=== PATIENT | female | born 1965 | race Caucasian/White ===

== ENCOUNTER → 2016-12-03 | Outpatient (CLI) | payer BC ==
--- NOTE | 2016-12-04 16:32 | MG ---
HISTORY: SCREENING Comparison: None FINDINGS: Bilateral CC and MLO projections of the right and left breast were obtained utilizing both full-fiel d and push back techniques. Heterogeneously dense fibroglandular tissue is seen to be present witho ut significant interval change. No suspicious architectural distortion, mass or clustered microcalc ifications can be observed to suggest malignancy. No skin thickening or nipple retraction is apprec iated. No pathological lymphadenopathy can be identified. Benign-appearing calcifications are note d within the right and left breast. Bilateral subpectoral saline implants appear grossly intact. IMPRESSION: NO RADIOGRAPHIC EVIDENCE OF MALIGNANCY. ACR CATEGORY 2 - benign findings. FOLLOW-UP EXAM 1 YEAR. Diagnostic CAD was utilized and reviewed. * 0 (ZERO) - ASSESSMENT INCOMPLETE; ADDITIONAL IMAGING IS NEEDED. * 1/1 (ONE) - NEGATIVE. * 2/II (TWO) - BENIGN FINDINGS. * 3/III (THREE) - PROBABLY BENIGN FINDING; SHORT INTERVAL FOLLOW-UP SUGGESTED. * 4/IV (FOUR) - SUSPICIOUS ABNORMALITY; BIOPSY SHOULD BE CONSIDERED. * 5/V (FIVE) - HIGHLY SUSPICIOUS OF MALIGNANCY; BIOPSY SHOULD BE PERFORMED. A NEGATIVE X-RAY REPORT SHOULD NOT DELAY BIOPSY IF A DOMINANT OR CLINICALLY SUSPICIOUS MASS IS PRESENT; 4 TO 8 PERCENT OF CANCERS ARE NOT IDENTIFIED BY X-RAY. A NEG ATIVE REPORT MAY REINFORCE THE CLINICAL IMPRESSION. ADENOSIS AND DENSE BREASTS MAY OBSCURE AN UNDER LYING NEOPLASM. Reported By:
== END ==
LOC: RAD 09:53
PROVIDERS: ATTEND Physician Assistant Medical
DX: Z12.31 Encounter for screening mammogram for malignant neoplasm of breast (principal)
CPT/HCPCS: 77067

== ENCOUNTER 2023-02-19 20:30 | Inpatient (IN) ==
--- NOTE | 2023-02-19 20:50 | EKG ---
Test Reason : CHEST PAIN Blood Pressure : */* mmHG Vent. Rate : 74 BPM Atrial Rate : 74 BPM P-R Int : 128 ms QRS Dur : 88 ms QT Int : 402 ms P-R-T Axes : 56 -16 59 degrees QTc Int : 446 ms Normal sinus rhythm Possible Left atrial enlargement Borderline ECG No previous ECGs available Confirmed by Christiano Choi ([id number]) on 02/20/2023 7:48:49 AM Referred By: Confirmed By: Christiano Choi
[2023-02-19 21:05] LABS: BASOPHILS # (AUTO) 0.1 X10^3/uL (0.0-0.1); BASOPHILS % (AUTO) 0.5 % (0.2-1.0); EOSINOPHILS # (AUTO) 0.1 x10^3/uL (0.0-0.2); EOSINOPHILS % (AUTO) 0.4 % (0.9-2.9); HEMATOCRIT 35.5 % (36.0-47.0); HEMOGLOBIN 12.2 g/dL (12.0-16.0); LYMPHOCYTES # (AUTO) 2.3 X10^3/uL (1.3-2.9); LYMPHOCYTES % (AUTO) 15.1 % (21.0-51.0); MEAN CORPUSCULAR HEMOGLOBIN 27.4 pg (27.0-34.0); MEAN CORPUSCULAR HGB CONC 34.5 g/dL (33.0-35.0); MEAN CORPUSCULAR VOLUME 79.5 fL (80.0-100.0); MEAN PLATELET VOLUME 8.4 fL (7.4-11.0); MONOCYTES # (AUTO) 1.1 x10^3/uL (0.3-0.8); MONOCYTES % (AUTO) 7.3 % (0.0-13.0); NEUTROPHILS # (AUTO) 11.7 x10^3/uL (2.2-4.8); NEUTROPHILS % (AUTO) 76.7 % (42.0-75.0); PLATELET COUNT 458 X10^3/uL (150.0-450.0); RED BLOOD COUNT 4.47 X10^6/uL (3.5-5.4); RED CELL DISTRIBUTION WIDTH 15.3 % (11.6-16.5); WHITE BLOOD COUNT 15.2 X10^3/uL (3.6-10.0)
[2023-02-19 21:16] LABS: ALANINE AMINOTRANSFERASE 15 Units/L (12-78); ALBUMIN 3.1 g/dL (3.4-5.0); ALKALINE PHOSPHATASE 108 Units/L (46-116); ASPARTATE AMINO TRANSFERASE 12 Units/L (15-37); BLOOD UREA NITROGEN 4 mg/dL (7-18); CARBON DIOXIDE 23.5 mmol/L (21-32); CHLORIDE 84 mmol/L (98-107); COR CA(FOR HYPOALB) 8.7 mg/dL (8.5-10.1); CREATINE KINASE 21 Units/L (26-192); CREATININE 0.75 mg/dL (0.55-1.02); GLUCOSE 94 mg/dL (65-99); POTASSIUM 3.1 mmol/L (3.5-5.1); TOTAL PROTEIN 6.2 g/dL (6.4-8.2); eGFR NON BLACK RACES > 60 (>60)
[2023-02-19 21:18] LABS: SODIUM 121 mmol/L (136-145)
[2023-02-19] MEDS ORDERED: NS 1,000 ML IV 1,000 ML ONE (21:19)
--- NOTE | 2023-02-19 21:21 | RAD ---
HISTORYC/O LEFT CHEST PAIN THAT RADIATES DOWN LEFT ARM. STARTED APPROX 1915 THIS DATE. EMS REPORTS PT HAS BEEN OUT OF HER BP AND ANXIETY MEDS AND HASNT BEEN TAKING THEM.STUDYCHEST, 1 VIEWCOMPARISONNoneFINDINGSModerate thoracic scoliotic curvature. Heart size is enlarged without failure. Interstitial lung changes suggesting COPD. No confluent airspace opacity or pneumothorax.IMPRESSIONChronic appearing interstitial lung changesElectronically signed by: Shahid Harris (Feb 19, 2023 21:21:13)
[2023-02-19] MEDS ORDERED: NS 1,000 ML IV 1,000 ML IV ONE (21:36)
[2023-02-19] MEDS ORDERED: K-DUR TAB 20 MEQ PO ONE ×2 (21:39)
--- NOTE | 2023-02-19 21:46 | DR.CP ---
HPI Time Seen Time Seen by Provider: 02/19/23 21:44 PCP Primary Care Physician: [facility] Complaint Chief Complaint Doctor Comments: CHEST PAIN RADIATING TO LEFT ARM STARTING 2 DAYS AGO. Chief Complaint:: PT C/O LEFT CHEST PAIN THAT RADIATES DOWN LEFT ARM. STARTED APPROX 1914 THIS DATE. Self Treatment fo Chief Complaint: PT REPORTS SHE IS TRYING TO GET OFF HER MEDS AND SENT THEM HOME TO HER BROTHER. PT STATES SHE HASNT TAKEN HER HOME MEDS IN 1 WEEK. COVID-19 Coronavirus risk:travel/contact w/high risk person: No Has patient experienced Coronavirus symptoms: No Source History Provided: Patient Mode of Arrival Mode of Arrival: EMS Timing Onset of Chief Complaint: 02/19/23 PMH PMH Past Medical History: Yes Past Medical History: Anxiety and Hypertension Past Surgical History: Yes Surgical History: Hysterectomy Family History History of Family Medical Conditions: No Social History Does patient currently use any type of tobacco product: Yes Have you used tobacco products in the last 12 months: Yes Type of Tobacco Use: VAPE Does any household member use tobacco: No Alcohol Use: None Do you use any recreational Drugs:: No Lives With: Alone Lives Where: Home Travel Risk Coronavirus risk:travel/contact w/high risk person: No Has patient experienced Coronavirus symptoms: No Infectious screening In the last 2 months have you had wt loss of >10#?: NO Have you had fever, night sweats or hemotysis?: No Have you traveled outside the country in the last 6 months?: No Isolation: Standard ROS Review of Systems Constitutional: Other (CHEST PAIN RADIATING TO LEFT ARM FOR 2 HOURS) Eyes: No Symptoms Reported ENTM: No Symptoms Reported Respiratoy: No Symptoms Reported Cardiovascular: Chest Pain Gastrointestinal/Abdominal: No Symptoms Reported Genitourinary: No Symptoms Reported Neurological: No Symptoms Reported Musculoskeletal: No Symptoms Reported Integumentary: No Symptoms Reported Hematologic/Lymphatic: No Symptoms Reported Endocrine: No Symptoms Reported Psychiatric: No Symptoms Reported PE Vitals Vitals: Temperature 97.7 F Pulse Rate 75 Respiratory Rate 18 Blood Pressure 158/68 O2 Sat by Pulse Oximetry 100 General Limitations: No Limitations General Appearance: In Distress (IN MILD DISTRESS) Head Head Exam: Normal Inspection and Atraumatic Eyes Eye exam: Normal Appearance, PERRL and EOMI ENT ENT Exam: Normal Exam, Normal Oropharynx and Normal External Ear Exam Chest Chest Inspection: Normal Inspection and Symmetric Chest Wall Rise Respiratory Respiratory Exam: Normal Lung Sounds Bilat Respiratory Exam: Bilateral: Clear to Auscultation Cardiovascular Cardiovascular Exam: Regular Rate and Normal Rhythm Pulse: Normal Abdominal Exam Abdominal Exam: Normal Inspection Extremities Extremities Exam: Normal Inspection and Full ROM Back Back Exam: Normal Inspection and Full ROM Neurologic Neurological Exam: Alert, Oriented X3 and CN II-XII Intact Psychiatric Psychiatric Exam: Anxious Skin Skin Exam: Warm, Dry and Intact MDM Differential Diagnosis Differential Diagnosis: Angina and Chest Wall Pain COURSE Treatment Treatment: PATIENT REMANED STABLE DURING ER EVALUATION. CARDIAC MENDOZA WAS NEGATIVE. PATIENT HAD SODIUM OF 121 AND POTASSIUM OF 3.1. WAS GIVEN A LITER BOLUS OS NACL AND A ND WAS GIVEN POTASSIUM 20MEQ IN ER ORALLY. THE PATIENT HAD NO CHEST PAIN IN THE ER. CHEST XRAY SHOWED MODERATE THORACIC SCOLIOSIS,ITERSTITIAL LUNG CHANGES SUGGESTING COPD. CONTACT WAS MADE WITH DR VILLASENOR AT 0120 AND HE STATED THAT HE WOULD ACCEPT THE PATIENT TO ADMISSION FOR HYPONATREMIA AND HYPOKALEMIA. SUGGESTED TO START THE PATIENT ON SALILE AT 125 CC/HR AND ADD POTASSIUM TO THE BAG. HE WILL FURTHER EVALUATE THE PATIENT IN THE AM AND DETERMINE SUBSEQUENT T REATMENT. ROR Labs Reviewed Laboratory Results Reviewed?: Yes Result Diagrams: 02/19/23 20:57 02/19/23 20:57 Laboratory: WBC 15.2 X10^3/uL (3.6-10.0) H 02/19/23 20:57 RBC 4.47 X10^6/uL (3.5-5.4) 02/19/23 20:57 Hgb 12.2 g/dL (12.0-16.0) 02/19/23 20:57 Hct 35.5 % (36.0-47.0) L 02/19/23 20:57 MCV 79.5 fL (80.0-100.0) L 02/19/23 20:57 MCH 27.4 pg (27.0-34.0) 02/19/23 20:57 MCHC 34.5 g/dL (33.0-35.0) 02/19/23 20:57 RDW 15.3 % (11.6-16.5) 02/19/23 20:57 Plt Count 458 X10^3/uL (150.0-450.0) H 02/19/23 20:57 MPV 8.4 fL (7.4-11.0) 02/19/23 20:57 Neut % (Auto) 76.7 % (42.0-75.0) H 02/19/23 20:57 Lymph % (Auto) 15.1 % (21.0-51.0) L 02/19/23 20:57 Morrill % (Auto) 7.3 % (0.0-13.0) 02/19/23 20:57 Eos % (Auto) 0.4 % (0.9-2.9) L 02/19/23 20:57 Baso % (Auto) 0.5 % (0.2-1.0) 02/19/23 20:57 Neut # (Auto) 11.7 x10^3/uL (2.2-4.8) H 02/19/23 20:57 Lymph # (Auto) 2.3 X10^3/uL (1.3-2.9) 02/19/23 20:57 Morrill # (Auto) 1.1 x10^3/uL (0.3-0.8) H 02/19/23 20:57 Eos # (Auto) 0.1 x10^3/uL (0.0-0.2) 02/19/23 20:57 Baso # (Auto) 0.1 X10^3/uL (0.0-0.1) 02/19/23 20:57 Absolute Nucleated RBC 0.1 /100WBC 02/19/23 20:57 Sodium 121 mmol/L (136-145) L* 02/19/23 20:57 Corrected Sodium TNP 02/19/23 20:57 Potassium 3.1 mmol/L (3.5-5.1) L 02/19/23 20:57 Chloride 84 mmol/L (98-107) L 02/19/23 20:57 Carbon Dioxide 23.5 mmol/L (21-32) 02/19/23 20:57 BUN 4 mg/dL (7-18) L 02/19/23 20:57 Creatinine 0.75 mg/dL (0.55-1.02) 02/19/23 20:57 Est GFR (MDRD) Af Amer > 60 (>60) 02/19/23 20:57 Est GFR (MDRD) Non-Af > 60 (>60) 02/19/23 20:57 Glucose 94 mg/dL (65-99) 02/19/23 20:57 Calcium 8.0 mg/dL (8.5-10.1) L 02/19/23 20:57 Corrected Calcium 8.7 mg/dL (8.5-10.1) 02/19/23 20:57 Total Bilirubin 0.50 mg/dL (0.2-1.0) 02/19/23 20:57 AST 12 Units/L (15-37) L 02/19/23 20:57 ALT 15 Units/L (12-78) 02/19/23 20:57 Alkaline Phosphatase 108 Units/L (46-116) 02/19/23 20:57 Creatine Kinase 21 Units/L (26-192) L 02/19/23 20:57 Troponin I High Sens 4.9 ng/L (4.0-60.0) 02/19/23 20:57 Total Protein 6.2 g/dL (6.4-8.2) L 02/19/23 20:57 Albumin 3.1 g/dL (3.4-5.0) L 02/19/23 20:57 Globulin 3.1 g/dL (2.5-4.5) 02/19/23 20:57 Albumin/Globulin Ratio 1.0 Ratio (1.1-2.1) L 02/19/23 20:57 Opioid Opioid Risk Tool Age (Luis Enrique box if 16-45): No History of Preadolescent Sexual Abuse: No Total: 0 Total Score Risk Category: Low Risk Copyright: Ori CRUZ predicting aberrant behaviors Discharge Plan Diagnosis Discharge Problem: Hypokalemia, Hyponatremia Discharge Plan Patient Disposition: ADMITTED INPATIENT Condition: Stable Orders to Discharge Patient Discharge Orders: Transfer (Routine); Ordered 02/20/23 Ordered By: Deacon Alicea
[2023-02-20] MEDS ORDERED: NS + KCL 20 MEQ/L 1,000 ML IV ONE (01:51)
[2023-02-20] MEDS: NS + KCL 20 MEQ/L 1,000 ML IV SCH ×4 (01:57→18:51)
[2023-02-20 03:02] VITALS: BMI 29.0
[2023-02-20 05:15] LABS: BASOPHILS # (AUTO) 0.1 X10^3/uL (0.0-0.1); BASOPHILS % (AUTO) 0.6 % (0.2-1.0); EOSINOPHILS # (AUTO) 0.1 x10^3/uL (0.0-0.2); EOSINOPHILS % (AUTO) 0.8 % (0.9-2.9); HEMOGLOBIN 12.2 g/dL (12.0-16.0); LYMPHOCYTES # (AUTO) 2.1 X10^3/uL (1.3-2.9); LYMPHOCYTES % (AUTO) 18.4 % (21.0-51.0); MEAN CORPUSCULAR HEMOGLOBIN 27.3 pg (27.0-34.0); MEAN CORPUSCULAR HGB CONC 34.8 g/dL (33.0-35.0); MEAN CORPUSCULAR VOLUME 78.5 fL (80.0-100.0); MEAN PLATELET VOLUME 8.5 fL (7.4-11.0); MONOCYTES # (AUTO) 0.9 x10^3/uL (0.3-0.8); MONOCYTES % (AUTO) 7.8 % (0.0-13.0); NEUTROPHILS # (AUTO) 8.4 x10^3/uL (2.2-4.8); NEUTROPHILS % (AUTO) 72.4 % (42.0-75.0); PLATELET COUNT 405 X10^3/uL (150.0-450.0); RED BLOOD COUNT 4.46 X10^6/uL (3.5-5.4); RED CELL DISTRIBUTION WIDTH 15.4 % (11.6-16.5); WHITE BLOOD COUNT 11.6 X10^3/uL (3.6-10.0)
[2023-02-20 05:31] LABS: ALANINE AMINOTRANSFERASE 14 Units/L (12-78); ALBUMIN 2.8 g/dL (3.4-5.0); ALKALINE PHOSPHATASE 100 Units/L (46-116); ASPARTATE AMINO TRANSFERASE 12 Units/L (15-37); BLOOD UREA NITROGEN 3 mg/dL (7-18); CALCIUM 7.7 mg/dL (8.5-10.1); CARBON DIOXIDE 24.2 mmol/L (21-32); CHLORIDE 90 mmol/L (98-107); COR CA(FOR HYPOALB) 8.7 mg/dL (8.5-10.1); CREATININE 0.54 mg/dL (0.55-1.02); GLUCOSE 84 mg/dL (65-99); POTASSIUM 3.5 mmol/L (3.5-5.1); TOTAL PROTEIN 5.7 g/dL (6.4-8.2); eGFR NON BLACK RACES > 60 (>60)
[2023-02-20 05:35] LABS: SODIUM 126 mmol/L (136-145)
[2023-02-20] MEDS: CYMBALTA PO SCH ×2 (10:45→20:36)
[2023-02-20] MEDS: MAGNESIUM SULFATE 1 GRAM/100 mL PREMIX 1 G/100 ML BAG IV PRN ×2 (10:47→12:20)
[2023-02-20] MEDS ORDERED: SODIUM CHL HYPERTONIC ** 3% ** 500 ML IV PRN (13:39)
[2023-02-20 17:39] LABS: BLOOD UREA NITROGEN 1 mg/dL (7-18); CALCIUM 7.5 mg/dL (8.5-10.1); CARBON DIOXIDE 24.5 mmol/L (21-32); CHLORIDE 103 mmol/L (98-107); CREATININE 0.53 mg/dL (0.55-1.02); GLUCOSE 88 mg/dL (65-99); POTASSIUM 4.1 mmol/L (3.5-5.1); SODIUM 138 mmol/L (136-145); eGFR NON BLACK RACES > 60 (>60)
[2023-02-20] MEDS ORDERED: ZOFRAN INJ 4 MG VIAL IVP PRN (18:08)
[2023-02-20] MEDS: TOPROL XL PO SCH (20:36)
[2023-02-21] MEDS: NS + KCL 20 MEQ/L 1,000 ML IV SCH (01:18)
[2023-02-21 06:27] LABS: BASOPHILS # (AUTO) 0.1 X10^3/uL (0.0-0.1); BASOPHILS % (AUTO) 0.8 % (0.2-1.0); EOSINOPHILS # (AUTO) 0.1 x10^3/uL (0.0-0.2); EOSINOPHILS % (AUTO) 0.7 % (0.9-2.9); HEMATOCRIT 35.4 % (36.0-47.0); LYMPHOCYTES # (AUTO) 2.1 X10^3/uL (1.3-2.9); LYMPHOCYTES % (AUTO) 20.7 % (21.0-51.0); MEAN CORPUSCULAR HEMOGLOBIN 27.5 pg (27.0-34.0); MEAN CORPUSCULAR HGB CONC 33.9 g/dL (33.0-35.0); MEAN PLATELET VOLUME 8.8 fL (7.4-11.0); MONOCYTES # (AUTO) 1.1 x10^3/uL (0.3-0.8); MONOCYTES % (AUTO) 10.8 % (0.0-13.0); NEUTROPHILS # (AUTO) 6.7 x10^3/uL (2.2-4.8); PLATELET COUNT 365 X10^3/uL (150.0-450.0); RED BLOOD COUNT 4.37 X10^6/uL (3.5-5.4); RED CELL DISTRIBUTION WIDTH 15.6 % (11.6-16.5); WHITE BLOOD COUNT 9.9 X10^3/uL (3.6-10.0)
[2023-02-21 06:41] LABS: ALANINE AMINOTRANSFERASE 15 Units/L (12-78); ALBUMIN 2.6 g/dL (3.4-5.0); ALKALINE PHOSPHATASE 89 Units/L (46-116); ASPARTATE AMINO TRANSFERASE 11 Units/L (15-37); BLOOD UREA NITROGEN 2 mg/dL (7-18); CALCIUM 7.8 mg/dL (8.5-10.1); CARBON DIOXIDE 25.9 mmol/L (21-32); CHLORIDE 105 mmol/L (98-107); COR CA(FOR HYPOALB) 8.9 mg/dL (8.5-10.1); COR NA(FOR HYPERGLY) 138 mmol/L (136-145); CREATININE 0.68 mg/dL (0.55-1.02); GLUCOSE 112 mg/dL (65-99); MAGNESIUM 2.1 mg/dL (2.0-2.9); POTASSIUM 4.4 mmol/L (3.5-5.1); SODIUM 138 mmol/L (136-145); TOTAL PROTEIN 5.6 g/dL (6.4-8.2); eGFR NON BLACK RACES > 60 (>60)
[2023-02-21] MEDS: TOPROL XL PO SCH (08:23)
[2023-02-21] MEDS: CYMBALTA PO SCH (08:23)
[2023-02-21 08:45] VITALS: O2SAT 99
[2023-02-21] MEDS ORDERED: PREDNISONE TAB 10 MG PO SCH (09:00)
[2023-02-21 13:13] VITALS: BP 114/73; PULSE 66; TEMP 98.6
== END 2023-02-21 14:05 | disposition home or self-care (01) | DRG 313 ==
LOC: ER 20:30 → MED/SURG 02-20 02:17
PROVIDERS: ADMIT Obstetrics & Gynecology Obstetrics; ATTEND Obstetrics & Gynecology Obstetrics
DX: E87.6 Hypokalemia; M79.602 Pain in left arm; E87.1 Hypo-osmolality and hyponatremia; R07.89 Other chest pain; R53.1 Weakness; E27.49 Other adrenocortical insufficiency

== ENCOUNTER 2024-08-07 10:00 | Inpatient (IN) ==
--- NOTE | 2024-08-07 10:51 | DR.GENAD ---
HPI Time Seen Time Seen by Provider: 08/07/24 10:51 PCP Primary Care Physician: jaya snider Complaint/Symptoms Chief Complaint:: Patient c/o of redness and pain to the left leg/ankle that has been going on a month that gets worse at night states it just got really bad lastnight. patient denies taking any antibiotics for it, denies any injuries. Self Treatment fo Chief Complaint: tylenol 0600 COVID-19 Coronavirus risk:travel/contact w/high risk person: No Has patient experienced Coronavirus symptoms: No Source History Provided: Patient Mode of Arrival Mode of Arrival: Ambulatory Timing Onset of Chief Complaint: 07/07/24 PMH PMH Past Medical History: Yes Past Medical History: Anxiety, Arthritis and Hypertension Past Surgical History: Yes Surgical History: Hysterectomy and Ortho Surgery Past Surgical History Comment: cataracts Family History History of Family Medical Conditions: Yes Family Medical History: Heart Failure and Hypertension Social History Does patient currently use any type of tobacco product: No Have you used tobacco products in the last 12 months: No Type of Tobacco Use: None Does any household member use tobacco: No Alcohol Use: None Do you use any recreational Drugs:: No Lives With: Alone Lives Where: Home Travel Risk Coronavirus risk:travel/contact w/high risk person: No Has patient experienced Coronavirus symptoms: No Infectious screening In the last 2 months have you had wt loss of >10#?: NO Have you had fever, night sweats or hemotysis?: No Have you traveled outside the country in the last 6 months?: No Isolation: Standard PE Vital Signs Vitals: Vital Signs Temperature 97.8 F Pulse Rate 80 Respiratory Rate 18 Blood Pressure 144/74 O2 Sat by Pulse Oximetry 100 ROR Labs Reviewed 08/07/24 11:26 08/07/24 11:26 Laboratory: WBC 21.9 X10^3/uL (3.6-10.0) H 08/07/24 11: RBC 4.99 X10^6/uL (3.5-5.4) 08/07/24 11: Hgb 14.2 g/dL (12.0-16.0) 08/07/24 11: Hct 39.7 % (36.0-47.0) 08/07/24 11: MCV 79.6 fL (80.0-100.0) L 08/07/24 11:26 MCH 28.5 pg (27.0-34.0) 08/07/24 11:26 MCHC 35.7 g/dL (33.0-35.0) H 08/07/24 11:26 RDW 15.4 % (11.6-16.5) 08/07/24 11:26 Plt Count 308 X10^3/uL (150.0-450.0) 08/07/24 11:26 Plt Count Comment Adequate (ADEQUATE) 08/07/24 11:26 MPV 8.4 fL (7.4-11.0) 08/07/24 11:26 Neut % (Auto) 91.7 % (42.0-75.0) H 08/07/24 11:26 Lymph % (Auto) 3.5 % (21.0-51.0) L 08/07/24 11:26 Crawford % (Auto) 4.5 % (0.0-13.0) 08/07/24 11:26 Eos % (Auto) 0.1 % (0.9-2.9) L 08/07/24 11:26 Baso % (Auto) 0.2 % (0.2-1.0) 08/07/24 11:26 Neut # (Auto) 20.1 x10^3/uL (2.2-4.8) H 08/07/24 11:26 Lymph # (Auto) 0.8 X10^3/uL (1.3-2.9) L 08/07/24 11:26 Crawford # (Auto) 1.0 x10^3/uL (0.3-0.8) H 08/07/24 11:26 Eos # (Auto) 0.0 x10^3/uL (0.0-0.2) 08/07/24 11:26 Baso # (Auto) 0.0 X10^3/uL (0.0-0.1) 08/07/24 11:26 Absolute Nucleated RBC 0.0 /100WBC 08/07/24 11:26 Total Counted 100 08/07/24 11:26 Neutrophils % (Manual) 82 % (39-76) H 08/07/24 11:26 Band Neutrophils % 5 % (0-10) 08/07/24 11:26 Lymphocytes % (Manual) 9 % (13-43) L 08/07/24 11:26 Monocytes % (Manual) 4 % (4-9) 08/07/24 11:26 Plt Morphology Comment Normal (NORMAL) 08/07/24 11:26 RBC Morphology Normal (NORMAL) 08/07/24 11:26 Sodium 114 mmol/L (136-145) L* 08/07/24 11:26 Corrected Sodium 114 mmol/L (136-145) L 08/07/24 11:26 Potassium 4.2 mmol/L (3.5-5.1) 08/07/24 11:26 Chloride 78 mmol/L (98-107) L* 08/07/24 11:26 Carbon Dioxide 26.1 mmol/L (21-32) 08/07/24 11:26 BUN 3 mg/dL (7-18) L 08/07/24 11:26 Creatinine 0.95 mg/dL (0.55-1.02) 08/07/24 11:26 Est GFR (MDRD) Af Amer > 60 (>60) 08/07/24 11:26 Est GFR (MDRD) Non-Af > 60 (>60) 08/07/24 11:26 Glucose 113 mg/dL (65-99) H 08/07/24 11:26 Lactic Acid 1.2 mmol/L (0.4-2.0) 08/07/24 12:07 Calcium 8.9 mg/dL (8.5-10.1) 08/07/24 11:26 Corrected Calcium TNP 08/07/24 11:26 Total Bilirubin 0.90 mg/dL (0.2-1.0) 08/07/24 11:26 AST 15 Units/L (15-37) 08/07/24 11:26 ALT 20 Units/L (12-78) 08/07/24 11:26 Alkaline Phosphatase 106 Units/L (46-116) 08/07/24 11:26 Total Protein 7.1 g/dL (6.4-8.2) 08/07/24 11:26 Albumin 3.4 g/dL (3.4-5.0) 08/07/24 11:26 Globulin 3.7 g/dL (2.5-4.5) 08/07/24 11:26 Albumin/Globulin Ratio 0.9 Ratio (1.1-2.1) L 08/07/24 11:26 Specimen Type Clean catch urine 08/07/24 11:14 Urine Color Yellow (YELLOW) 08/07/24 11:14 Urine Appearance Slightly hazy (CLEAR) 08/07/24 11:14 Urine pH 6.0 (5.0 - 8.0) 08/07/24 11:14 Ur Specific [place] 1.010 (1.000-1.030) 08/07/24 11:14 Urine Protein 2+ (NEGATIVE) 08/07/24 11:14 Urine Glucose (UA) Negative (NEGATIVE) 08/07/24 11:14 Urine Ketones 3+ (NEGATIVE) 08/07/24 11:14 Urine Blood 3+ (NEGATIVE) 08/07/24 11:14 Urine Nitrite Negative (NEGATIVE) 08/07/24 11:14 Urine Bilirubin Negative (NEGATIVE) 08/07/24 11:14 Urine Urobilinogen Normal (NORMAL) 08/07/24 11:14 Ur Leukocyte Esterase Negative (NEGATIVE) 08/07/24 11:14 Urine RBC 3-5 /HPF (0-3) A 08/07/24 11:14 Urine WBC 0-2 /HPF (0-5) 08/07/24 11:14 Ur Squamous Epith Cells Many /HPF (NEGATIVE) 08/07/24 11:14 Amorphous Sediment 1+ /HPF (NEGATIVE) 08/07/24 11:14 Urine Bacteria Negative /HPF (NEGATIVE) 08/07/24 11:14 Urine Mucus Few /HPF (NEGATIVE) 08/07/24 11:14 Ur Culture Indicated? No/not indicated 08/07/24 11:14 Opioid Opioid Risk Tool Age (Luis Enrique box if 16-45): No History of Preadolescent Sexual Abuse: No Total: 0 Total Score Risk Category: Low Risk Copyright: Ori CRUZ predicting aberrant behaviors Discharge Plan Diagnosis Discharge Problem: Cellulitis of right leg, Acute hyponatremia, Lower back pain, Leukocytosis Discharge Plan Patient Disposition: 09 ADMITTED INPATIENT Condition: Stable Orders to Discharge Patient Discharge Orders: Transfer (Routine); Ordered 08/07/24 Ordered By: ЕЛЕНА MELARA
[2024-08-07] MEDS: CYMBALTA PO ONE (11:18)
[2024-08-07 11:26] LABS: BILIRUBIN,URINE NEGATIVE (NEGATIVE); BLOOD/HEMOGLOBIN,URINE 3+ (NEGATIVE); GLUCOSE, URINE NEGATIVE (NEGATIVE); KETONES,URINE 3+ (NEGATIVE); LEUKOCYTE ESTERASE ,URINE NEGATIVE (NEGATIVE); NITRITES,URINE NEGATIVE (NEGATIVE); PROTEIN,URINE 2+ (NEGATIVE); UROBILINOGEN,URINE NORMAL (NORMAL)
[2024-08-07 11:30] LABS: APPEARANCE,URINE SLIGHTLY HAZY (CLEAR); COLOR,URINE YELLOW (YELLOW)
[2024-08-07 11:33] LABS: BACTERIA,URINE NEGATIVE /HPF (NEGATIVE); SQUAMOUS EPITHELIAL CELL,UR MANY /HPF (NEGATIVE)
[2024-08-07 11:38] LABS: HEMATOCRIT 39.7 % (36.0-47.0); HEMOGLOBIN 14.2 g/dL (12.0-16.0); MEAN CORPUSCULAR HEMOGLOBIN 28.5 pg (27.0-34.0); MEAN CORPUSCULAR VOLUME 79.6 fL (80.0-100.0); RED BLOOD COUNT 4.99 X10^6/uL (3.5-5.4)
[2024-08-07 11:42] LABS: BASOPHILS % (AUTO) 0.2 % (0.2-1.0); EOSINOPHILS % (AUTO) 0.1 % (0.9-2.9); LYMPHOCYTES # (AUTO) 0.8 X10^3/uL (1.3-2.9); LYMPHOCYTES % (AUTO) 3.5 % (21.0-51.0); MEAN CORPUSCULAR HGB CONC 35.7 g/dL (33.0-35.0); MEAN PLATELET VOLUME 8.4 fL (7.4-11.0); MONOCYTES % (AUTO) 4.5 % (0.0-13.0); NEUTROPHILS # (AUTO) 20.1 x10^3/uL (2.2-4.8); NEUTROPHILS % (AUTO) 91.7 % (42.0-75.0); PLATELET COUNT 308 X10^3/uL (150.0-450.0); RED CELL DISTRIBUTION WIDTH 15.4 % (11.6-16.5); WHITE BLOOD COUNT 21.9 X10^3/uL (3.6-10.0)
[2024-08-07 11:46] LABS: ALANINE AMINOTRANSFERASE 20 Units/L (12-78); ALBUMIN 3.4 g/dL (3.4-5.0); ALKALINE PHOSPHATASE 106 Units/L (46-116); ASPARTATE AMINO TRANSFERASE 15 Units/L (15-37); BLOOD UREA NITROGEN 3 mg/dL (7-18); CALCIUM 8.9 mg/dL (8.5-10.1); CARBON DIOXIDE 26.1 mmol/L (21-32); COR NA(FOR HYPERGLY) 114 mmol/L (136-145); CREATININE 0.95 mg/dL (0.55-1.02); GLUCOSE 113 mg/dL (65-99); POTASSIUM 4.2 mmol/L (3.5-5.1); TOTAL PROTEIN 7.1 g/dL (6.4-8.2); eGFR NON BLACK RACES > 60 (>60)
[2024-08-07 11:52] LABS: CHLORIDE 78 mmol/L (98-107); SODIUM 114 mmol/L (136-145)
[2024-08-07 12:06] LABS: BAND NEUTROPHILS % 5 % (0-10); PLATELET MORPHOLOGY COMMENT NORMAL (NORMAL)
[2024-08-07] MEDS ORDERED: NS 1,000 ML IV 1,000 ML ONE (12:19)
[2024-08-07] MEDS: NS 1,000 ML IV 1,000 ML IV ONE (12:22)
--- NOTE | 2024-08-07 12:53 | CT ---
EXAM:CT lumbar spine without contrastHISTORY:Low back painTECHNIQUE:Axial noncontrast images with coronal and sagittal reformats. Dose reduction procedures were used with mA/kv adjusted for body size.COMPARISON:NoneFINDINGS:Bones are osteopenic. The alignment is normal. The vertebral bodies are of average height with the exception of a compression of the superior endplate of L1 which is associated with mild retropulsion of the posterosuperior aspect of the vertebral body contributing to a mild canal stenosis. The age of this fracture is indeterminate however it certainly could be acute or subacute. Historical correlation recommended. Pedicles, transverse processes, and posterior elements are intact. SI joints and visualized portion of the sacrum intact. Disc levels are evaluated as follows:T12-L1 level: No evidence for compressive disc disease or compressive spondylitic change. Retropulsion of the posterosuperior aspect of the compressed L1 vertebral body contributes to mild canal stenosis. Neural foramina are patent. Joints are normal.L1-2 level, L2-3 level: No evidence for compressive disc disease or compressive spondylitic change. Neural foramina are patent. The joints are normal.L3-4 level: Broad-based disc bulging effaces the thecal sac and contributes to very mild lateral recess narrowing bilaterally. The neural foramina are patent. The joints are normal.L4-5 level: There is a large compressive central and leftward disc protrusion which contributes to lateral recess and foraminal narrowing on the left and mild lateral recess narrowing on the right. The joints are normal.L5-S1 level: Central and leftward disc bulging abuts but does not displace the right S1 nerve root and abuts and causes slight posterior displacement of the left S1 nerve root. It contributes along with spondylitic change and facet arthropathy to lateral recess and foraminal narrowing on the left. Right neural foramen is patent.IMPRESSION:Compression fracture of the superior endplate of L1 with associated retropulsion of the posterosuperior aspect of the vertebral body contributing to mild canal stenosis. Age of the fracture is indeterminate but could be acute or subacute. Historical correlation recommended.Large compressive central and leftward disc protrusion at L4-5 which contributes to lateral recess and foraminal narrowing on the left and mild lateral recess narrowing on the right.Smaller central and leftward disc bulging at L5-S1 which abuts and slightly posteriorly displaces the left S1 nerve root and contributes along with spondylitic change and facet arthropathy to significant lateral recess and foraminal narrowing on the left.Evaluation of each disc level given in detail aboveTHIS IS AN ELECTRONICALLY VERIFIED FINAL [id number]/07/2024 12:50 PM - Electronically signed by Balaji Zapata MD
[2024-08-07] MEDS ORDERED: ANCEF VIAL 1 GRAM IVP SCH (16:00)
[2024-08-07 16:07] VITALS: BMI 26.2
[2024-08-07] MEDS: ZOFRAN TAB 4 MG PO PRN (16:22)
[2024-08-07] MEDS: ANCEF VIAL 1 GRAM 1 G in NS 100 ML IV 100 ML IV SCH (17:30)
[2024-08-07 19:43] LABS: BLOOD UREA NITROGEN 2 mg/dL (7-18); CALCIUM 8.6 mg/dL (8.5-10.1); CARBON DIOXIDE 24.2 mmol/L (21-32); CHLORIDE 82 mmol/L (98-107); CREATININE 0.79 mg/dL (0.55-1.02); GLUCOSE 87 mg/dL (65-99); POTASSIUM 4.1 mmol/L (3.5-5.1); eGFR NON BLACK RACES > 60 (>60)
[2024-08-07 19:49] LABS: SODIUM 119 mmol/L (136-145)
[2024-08-07] MEDS: ZOFRAN INJ 4 MG VIAL IVP PRN (21:27)
[2024-08-07] MEDS: NS 1,000 ML IV 1,000 ML IV SCH (21:29)
[2024-08-07] MEDS: ULTRAM PO PRN (21:37)
[2024-08-08] MEDS: MORPHINE SULFATE INJ 2 MG INJ IVP PRN (02:52)
[2024-08-08] MEDS: FLEXERIL TAB 10 MG PO PRN ×2 (06:13→17:26)
[2024-08-08 06:18] LABS: BASOPHILS % (AUTO) 0.3 % (0.2-1.0); EOSINOPHILS % (AUTO) 0.1 % (0.9-2.9); HEMATOCRIT 36.4 % (36.0-47.0); LYMPHOCYTES # (AUTO) 1.1 X10^3/uL (1.3-2.9); LYMPHOCYTES % (AUTO) 8.1 % (21.0-51.0); MEAN CORPUSCULAR HEMOGLOBIN 28.6 pg (27.0-34.0); MEAN CORPUSCULAR HGB CONC 35.7 g/dL (33.0-35.0); MEAN CORPUSCULAR VOLUME 80.2 fL (80.0-100.0); MEAN PLATELET VOLUME 8.5 fL (7.4-11.0); MONOCYTES # (AUTO) 0.8 x10^3/uL (0.3-0.8); NEUTROPHILS # (AUTO) 11.9 x10^3/uL (2.2-4.8); NEUTROPHILS % (AUTO) 85.5 % (42.0-75.0); PLATELET COUNT 258 X10^3/uL (150.0-450.0); RED BLOOD COUNT 4.54 X10^6/uL (3.5-5.4); RED CELL DISTRIBUTION WIDTH 15.2 % (11.6-16.5)
--- NOTE | 2024-08-08 06:19 | RAD ---
EXAM:LOWER LEG, TIB/FIB RIGHTHISTORY:cellulitis;COMPARISON:None .br.br.br.br deformity. The remaining visualized osseous structures appear intact. Mild edema throughout the calf.IMPRESSION:Age-indeterminate proximal fibular fracture.THIS IS AN ELECTRONICALLY VERIFIED FINAL [id number]/08/2024 6:16 AM - Electronically signed by Balaji Zapata MD
[2024-08-08 06:27] LABS: WHITE BLOOD COUNT 13.9 X10^3/uL (3.6-10.0)
[2024-08-08 06:41] LABS: ALANINE AMINOTRANSFERASE 18 Units/L (12-78); ALKALINE PHOSPHATASE 95 Units/L (46-116); ASPARTATE AMINO TRANSFERASE 11 Units/L (15-37); BLOOD UREA NITROGEN 2 mg/dL (7-18); CALCIUM 8.3 mg/dL (8.5-10.1); CARBON DIOXIDE 22.3 mmol/L (21-32); CHLORIDE 85 mmol/L (98-107); COR CA(FOR HYPOALB) 9.1 mg/dL (8.5-10.1); CREATININE 0.83 mg/dL (0.55-1.02); GLUCOSE 86 mg/dL (65-99); TOTAL PROTEIN 6.4 g/dL (6.4-8.2); eGFR NON BLACK RACES > 60 (>60)
[2024-08-08 06:43] LABS: SODIUM 121 mmol/L (136-145)
[2024-08-08] MEDS ORDERED: FLEXERIL TAB 10 MG PO SCH (09:00)
--- NOTE | 2024-08-08 11:11 | DR.H&P ---
H&P History & Physical for Day of: H&P Date: 08/08/24 Chief Complaint Chief Complaint: right leg redness, fall History of Present Illness History of Present Illness: Ms Baltazar is a 59y/o female with a PMH of HTN, anxiety, arthritis presented with worsening right lower leg redness and pain. She reports having increased redness with blistering and drainage for over a week. She was treating it with topical ointments. She also reports having a fall yesterday where she felt her back pop. She reports chronic diarrhea for over a year with recent decreased oral intake. Er work up showed hyponatremia, Na 114. Lumbar CT showed L1 compression fracture along with chronic DDD changes. Right leg XR showed indeterminate prox fibular fracture. Ortho was contacted with no further inpatient recommendations at this time. She was started on IV antibiotics and IVF. Her Na is 121 this morning. She reports worsening back pain. She is currently on morphine and tramadol prn. Labs/imaging reviewed: -WBC 13.9 Na 121 Cl 85 BUN/Cr: 2/0.83 -Blood Cx pending Plan: Continue hydration, monitor Na levels. Continue pain control for com pression fracture. Stop tramdol, start [place] prn. Continue morphine. Continue IV antibiotics, follow blood cultures. Wound Cx pending but no obvious drainage noted at this time. Keep leg elevated. Resume home medications. Replace electrolytes as per protocol. Monitor AM labs/imaging. Past Medical History Past Medical History: Anxiety, Arthritis and Hypertension Past Surgical History Surgical History: Hysterectomy and Ortho Surgery Family History Family Medical History: Cancer, ID and Hypertension Social History Does patient currently use any type of tobacco product: No Have you used tobacco products in the last 12 months: No Type of Tobacco Use: None Does any household member use tobacco: No Alcohol Use: None Drug Use: None Medications Home Medications: Home Medications Medication Instructions Recorded Confirmed Type metoprolol succinate 25 mg capsule 25 mg PO BID 02/19/23 08/07/24 History sprinkle, ext. release 24 hr diclofenac sodium 75 mg 75 mg PO BID 08/07/24 08/07/24 History tablet,delayed release lisinopril 10 mg tablet 10 mg PO DAILY 08/07/24 08/07/24 History Allergies Allergies Allergy/AdvReac Type Severity Reaction Status Date / Time azithromycin [From Zithromax] Allergy Verified 08/07/24 10:05 codeine Allergy Verified 08/07/24 10:05 Labs 08/08/24 05:47 08/08/24 05:47 Labs: Laboratory WBC 13.9 X10^3/uL (3.6-10.0) H D 08/08/24 05:47 RBC 4.54 X10^6/uL (3.5-5.4) 08/08/24 05:47 Hgb 13.0 g/dL (12.0-16.0) 08/08/24 05:47 Hct 36.4 % (36.0-47.0) 08/08/24 05:47 MCV 80.2 fL (80.0-100.0) 08/08/24 05:47 MCH 28.6 pg (27.0-34.0) 08/08/24 05:47 MCHC 35.7 g/dL (33.0-35.0) H 08/08/24 05:47 RDW 15.2 % (11.6-16.5) 08/08/24 05:47 Plt Count 258 X10^3/uL (150.0-450.0) 08/08/24 05:47 Plt Count Comment Adequate (ADEQUATE) 08/07/24 11: MPV 8.5 fL (7.4-11.0) 08/08/24 05:47 Neut % (Auto) 85.5 % (42.0-75.0) H 08/08/24 05:47 Lymph % (Auto) 8.1 % (21.0-51.0) L 08/08/24 05:47 [place] % (Auto) 6.0 % (0.0-13.0) 08/08/24 05:47 Eos % (Auto) 0.1 % (0.9-2.9) L 08/08/24 05:47 Baso % (Auto) 0.3 % (0.2-1.0) 08/08/24 05:47 Neut # (Auto) 11.9 x10^3/uL (2.2-4.8) H 08/08/24 05:47 Lymph # (Auto) 1.1 X10^3/uL (1.3-2.9) L 08/08/24 05:47 [place] # (Auto) 0.8 x10^3/uL (0.3-0.8) 08/08/24 05:47 Eos # (Auto) 0.0 x10^3/uL (0.0-0.2) 08/08/24 05:47 Baso # (Auto) 0.0 X10^3/uL (0.0-0.1) 08/08/24 05:47 Absolute Nucleated RBC 0.0 /100WBC 08/08/24 05:47 Total Counted 100 08/07/24 11:26 Neutrophils % (Manual) 82 % (39-76) H 08/07/24 11:26 Band Neutrophils % 5 % (0-10) 08/07/24 11:26 Lymphocytes % (Manual) 9 % (13-43) L 08/07/24 11:26 Monocytes % (Manual) 4 % (4-9) 08/07/24 11:26 Plt Morphology Comment Normal (NORMAL) 08/07/24 11:26 RBC Morphology Normal (NORMAL) 08/07/24 11:26 Sodium 121 mmol/L (136-145) L* 08/08/24 05:47 Corrected Sodium TNP 08/08/24 05:47 Potassium 4.0 mmol/L (3.5-5.1) 08/08/24 05:47 Chloride 85 mmol/L (98-107) L 08/08/24 05:47 Carbon Dioxide 22.3 mmol/L (21-32) 08/08/24 05:47 BUN 2 mg/dL (7-18) L 08/08/24 05:47 Creatinine 0.83 mg/dL (0.55-1.02) 08/08/24 05:47 Est GFR (MDRD) Af Amer > 60 (>60) 08/08/24 05:47 Est GFR (MDRD) Non-Af > 60 (>60) 08/08/24 05:47 Glucose 86 mg/dL (65-99) 08/08/24 05:47 Lactic Acid 1.2 mmol/L (0.4-2.0) 08/07/24 12:07 Calcium 8.3 mg/dL (8.5-10.1) L 08/08/24 05:47 Corrected Calcium 9.1 mg/dL (8.5-10.1) 08/08/24 05:47 Total Bilirubin 0.50 mg/dL (0.2-1.0) 08/08/24 05:47 AST 11 Units/L (15-37) L 08/08/24 05:47 ALT 18 Units/L (12-78) 08/08/24 05:47 Alkaline Phosphatase 95 Units/L (46-116) 08/08/24 05:47 Total Protein 6.4 g/dL (6.4-8.2) 08/08/24 05:47 Albumin 3.0 g/dL (3.4-5.0) L 08/08/24 05:47 Globulin 3.4 g/dL (2.5-4.5) 08/08/24 05:47 Albumin/Globulin Ratio 0.9 Ratio (1.1-2.1) L 08/08/24 05:47 Specimen Type Clean catch urine 08/07/24 11:14 Urine Color Yellow (YELLOW) 08/07/24 11:14 Urine Appearance Slightly hazy (CLEAR) 08/07/24 11:14 Urine pH 6.0 (5.0 - 8.0) 08/07/24 11:14 Ur Specific [place] 1.010 (1.000-1.030) 08/07/24 11:14 Urine Protein 2+ (NEGATIVE) 08/07/24 11:14 Urine Glucose (UA) Negative (NEGATIVE) 08/07/24 11:14 Urine Ketones 3+ (NEGATIVE) 08/07/24 11:14 Urine Blood 3+ (NEGATIVE) 08/07/24 11:14 Urine Nitrite Negative (NEGATIVE) 08/07/24 11:14 Urine Bilirubin Negative (NEGATIVE) 08/07/24 11:14 Urine Urobilinogen Normal (NORMAL) 08/07/24 11:14 Ur Leukocyte Esterase Negative (NEGATIVE) 08/07/24 11:14 Urine RBC 3-5 /HPF (0-3) A 08/07/24 11:14 Urine WBC 0-2 /HPF (0-5) 08/07/24 11:14 Ur Squamous Epith Cells Many /HPF (NEGATIVE) 08/07/24 11:14 Amorphous Sediment 1+ /HPF (NEGATIVE) 08/07/24 11:14 Urine Bacteria Negative /HPF (NEGATIVE) 08/07/24 11:14 Urine Mucus Few /HPF (NEGATIVE) 08/07/24 11:14 Ur Culture Indicated? No/not indicated 08/07/24 11:14 Review of Systems Constitutional: Weakness Eyes: No Symptoms Reported ENT: No Symptoms Reported Respiratory: No Symptoms Reported Cardiovascular: No Symptoms Reported Gastrointestinal: No Symptoms Reported Genitourinary: No Symptoms Reported Musculoskeletal: Back Pain and Leg Pain Skin: Rash and Wound Neurological: No Symptoms Reported Physical Exam Vital Signs: Vital Signs Temperature 99.1 F Temperature 98.1 F Pulse Rate [Left Brachial] 90 Pulse Rate [Left Brachial] 76 Respiratory Rate 18 Respiratory Rate 18 Respiratory Rate 20 Respiratory Rate 20 Respiratory Rate 18 Respiratory Rate 20 Blood Pressure [Left Arm] 125/82 Blood Pressure [Left Arm] 135/77 O2 Sat by Pulse Oximetry 97 O2 Sat by Pulse Oximetry 98 Oriented: Normal Throat: Normal Respiratory: Clear Throughout Cardiovascular: Normal Auscultation: Bowel Sounds: Normal Palpation: Normal Tenderness: Normal Skin: Rash, Tender and Other (RLE: erythematous, blistering, no drainage, warm + tender ) Musculoskeletal: Leg, Back:Lumbar and Back:Paraspinous Psychiatric: Normal Mood Description: Calm Affect: Normal Speech Pattern: Clear and Appropriate Assessment/Plan (1) Hyponatremia: Status: Acute (2) Hypokalemia: Status: Acute (3) Cellulitis of right leg: Status: Acute (4) Compression fracture: Status: Acute (5) Closed fibular fracture: Qualifiers: Encounter type: initial encounter Fibula location: proximal Fracture morphology: other fracture Laterality: right Qualified Code(s): S82.831A - Other fracture of upper and lower end of right fibula, initial encounter for closed fracture Status: Acute (6) Dehydration: Status: Acute Review H&P Reviewed: Yes Patient was examined?: Yes
[2024-08-08] MEDS: NORCO 5/325 MG TAB PO PRN (13:49)
[2024-08-08] MEDS: LOPRESSOR TAB 25 MG PO SCH (20:36)
[2024-08-09] MEDS ORDERED: NS 100 ML IV 100 ML ONE (05:47)
[2024-08-09 05:56] LABS: BASOPHILS % (AUTO) 0.4 % (0.2-1.0); EOSINOPHILS % (AUTO) 0.2 % (0.9-2.9); HEMATOCRIT 34.4 % (36.0-47.0); HEMOGLOBIN 12.2 g/dL (12.0-16.0); LYMPHOCYTES # (AUTO) 1.2 X10^3/uL (1.3-2.9); LYMPHOCYTES % (AUTO) 11.4 % (21.0-51.0); MEAN CORPUSCULAR HEMOGLOBIN 28.9 pg (27.0-34.0); MEAN CORPUSCULAR HGB CONC 35.6 g/dL (33.0-35.0); MEAN CORPUSCULAR VOLUME 81.1 fL (80.0-100.0); MEAN PLATELET VOLUME 8.1 fL (7.4-11.0); MONOCYTES # (AUTO) 1.1 x10^3/uL (0.3-0.8); MONOCYTES % (AUTO) 10.8 % (0.0-13.0); NEUTROPHILS % (AUTO) 77.2 % (42.0-75.0); PLATELET COUNT 255 X10^3/uL (150.0-450.0); RED BLOOD COUNT 4.25 X10^6/uL (3.5-5.4); RED CELL DISTRIBUTION WIDTH 15.6 % (11.6-16.5); WHITE BLOOD COUNT 10.3 X10^3/uL (3.6-10.0)
[2024-08-09 06:01] LABS: ALANINE AMINOTRANSFERASE 14 Units/L (12-78); ALBUMIN 2.5 g/dL (3.4-5.0); ALKALINE PHOSPHATASE 82 Units/L (46-116); ASPARTATE AMINO TRANSFERASE 9 Units/L (15-37); BLOOD UREA NITROGEN 0 mg/dL (7-18); CALCIUM 8.2 mg/dL (8.5-10.1); CHLORIDE 100 mmol/L (98-107); COR CA(FOR HYPOALB) 9.4 mg/dL (8.5-10.1); CREATININE 0.84 mg/dL (0.55-1.02); GLUCOSE 105 mg/dL (65-99); MAGNESIUM 1.8 mg/dL (2.0-2.9); POTASSIUM 3.4 mmol/L (3.5-5.1); SODIUM 136 mmol/L (136-145); TOTAL PROTEIN 5.4 g/dL (6.4-8.2); eGFR NON BLACK RACES > 60 (>60)
[2024-08-09] MEDS: ZESTRIL TAB 10 MG PO SCH (09:40)
--- NOTE | 2024-08-09 10:06 | PCM.PROG ---
Progress Note Progress Note for Day of Date of Exam: 08/09/24 Subjective Subjective: Patient seen at bedside, no acute events overnight. She is feeling better today. She states back pain is better controlled. She has been ambulating to the bathroom. She is currently admitted for hyponatremia, dehydration, RLE cellulitis and lumbar compression fracture. Na has normalized. Wound Cx pending. Labs/imaging reviewed: -WBC 10.3 K 3.4 Na 136 Mag 1.8 -Wound Cx pending Plan: Continue IV antibiotics, follow final culture. Replace K and Mag, continue hydration. Continue pain control. Continue home medications. PT evaluation, ambulate as tolerated. Keep RLE elevated. Monitor AM labs/imaging. Past Medical Family Social History Allergies: Allergies azithromycin [From Zithromax] Allergy (Verified 08/07/24 10:05) codeine Allergy (Verified 08/07/24 10:05) Vital Signs and I&O's Vital Signs: Vital Signs Temperature 100.3 F Temperature 98.0 F Pulse Rate [Left Brachial] 93 Pulse Rate [Left Brachial] 89 Respiratory Rate 18 Respiratory Rate 20 Respiratory Rate 18 Blood Pressure [Left Arm] 137/65 Blood Pressure [Left Arm] 136/64 O2 Sat by Pulse Oximetry 96 O2 Sat by Pulse Oximetry 95 Intake and Output: Intake & Output 08/06/24 08/07/24 08/08/24 08/09/24 23:59 23:59 23:59 23:59 Intake Total 600 / 600 3951 / 3951 1145 / 1145 Balance 600 / 600 3951 / 3951 1145 / 1145 Physical Exam Oriented: Normal Throat: Normal Respiratory: Normal Cardiovascular: Normal Auscultation: Bowel Sounds: Normal Palpation: Normal Tenderness: Normal Skin: Rash, Tender and Other (RLE: erythematous, blistering, no drainage, warm + tender - improved ) Musculoskeletal: Leg, Back:Lumbar and Back:Paraspinous Psychiatric: Normal Mood Description: Calm Affect: Normal Speech Pattern: Clear and Appropriate Laboratory and Diagnostics 08/09/24 05:32 08/09/24 05:32 Labs: 08/08/24 11:15 Leg - Right Wound Gram Stain - Final 08/08/24 11:15 Leg - Right Wound Culture - Preliminary Laboratory WBC 10.3 X10^3/uL (3.6-10.0) H 08/09/24 05:32 RBC 4.25 X10^6/uL (3.5-5.4) 08/09/24 05:32 Hgb 12.2 g/dL (12.0-16.0) 08/09/24 05:32 Hct 34.4 % (36.0-47.0) L 08/09/24 05:32 MCV 81.1 fL (80.0-100.0) 08/09/24 05:32 MCH 28.9 pg (27.0-34.0) 08/09/24 05:32 MCHC 35.6 g/dL (33.0-35.0) H 08/09/24 05:32 RDW 15.6 % (11.6-16.5) 08/09/24 05:32 Plt Count 255 X10^3/uL (150.0-450.0) 08/09/24 05:32 Plt Count Comment Adequate (ADEQUATE) 08/07/24 11:26 MPV 8.1 fL (7.4-11.0) 08/09/24 05:32 Neut % (Auto) 77.2 % (42.0-75.0) H 08/09/24 05:32 Lymph % (Auto) 11.4 % (21.0-51.0) L 08/09/24 05:32 [place] % (Auto) 10.8 % (0.0-13.0) 08/09/24 05:32 Eos % (Auto) 0.2 % (0.9-2.9) L 08/09/24 05:32 Baso % (Auto) 0.4 % (0.2-1.0) 08/09/24 05:32 Neut # (Auto) 8.0 x10^3/uL (2.2-4.8) H 08/09/24 05:32 Lymph # (Auto) 1.2 X10^3/uL (1.3-2.9) L 08/09/24 05:32 [place] # (Auto) 1.1 x10^3/uL (0.3-0.8) H 08/09/24 05:32 Eos # (Auto) 0.0 x10^3/uL (0.0-0.2) 08/09/24 05:32 Baso # (Auto) 0.0 X10^3/uL (0.0-0.1) 08/09/24 05:32 Absolute Nucleated RBC 0.0 /100WBC 08/09/24 05:32 Total Counted 100 08/07/24 11:26 Neutrophils % (Manual) 82 % (39-76) H 08/07/24 11:26 Band Neutrophils % 5 % (0-10) 08/07/24 11:26 Lymphocytes % (Manual) 9 % (13-43) L 08/07/24 11:26 Monocytes % (Manual) 4 % (4-9) 08/07/24 11:26 Plt Morphology Comment Normal (NORMAL) 08/07/24 11:26 RBC Morphology Normal (NORMAL) 08/07/24 11:26 Sodium 136 mmol/L (136-145) 08/09/24 05:32 Corrected Sodium TNP 08/09/24 05:32 Potassium 3.4 mmol/L (3.5-5.1) L 08/09/24 05:32 Chloride 100 mmol/L (98-107) 08/09/24 05:32 Carbon Dioxide 26.0 mmol/L (21-32) 08/09/24 05:32 BUN 0 mg/dL (7-18) L 08/09/24 05:32 Creatinine 0.84 mg/dL (0.55-1.02) 08/09/24 05:32 Est GFR (MDRD) Af Amer > 60 (>60) 08/09/24 05:32 Est GFR (MDRD) Non-Af > 60 (>60) 08/09/24 05:32 Glucose 105 mg/dL (65-99) H 08/09/24 05:32 Lactic Acid 1.2 mmol/L (0.4-2.0) 08/07/24 12:07 Calcium 8.2 mg/dL (8.5-10.1) L 08/09/24 05:32 Corrected Calcium 9.4 mg/dL (8.5-10.1) 08/09/24 05:32 Magnesium 1.8 mg/dL (2.0-2.9) L 08/09/24 05:32 Total Bilirubin 0.30 mg/dL (0.2-1.0) 08/09/24 05:32 AST 9 Units/L (15-37) L 08/09/24 05:32 ALT 14 Units/L (12-78) 08/09/24 05:32 Alkaline Phosphatase 82 Units/L (46-116) 08/09/24 05:32 Total Protein 5.4 g/dL (6.4-8.2) L 08/09/24 05:32 Albumin 2.5 g/dL (3.4-5.0) L 08/09/24 05:32 Globulin 2.9 g/dL (2.5-4.5) 08/09/24 05:32 Albumin/Globulin Ratio 0.9 Ratio (1.1-2.1) L 08/09/24 05:32 Specimen Type Clean catch urine 08/07/24 11:14 Urine Color Yellow (YELLOW) 08/07/24 11:14 Urine Appearance Slightly hazy (CLEAR) 08/07/24 11:14 Urine pH 6.0 (5.0 - 8.0) 08/07/24 11:14 Ur Specific [place] 1.010 (1.000-1.030) 08/07/24 11:14 Urine Protein 2+ (NEGATIVE) 08/07/24 11:14 Urine Glucose (UA) Negative (NEGATIVE) 08/07/24 11:14 Urine Ketones 3+ (NEGATIVE) 08/07/24 11:14 Urine Blood 3+ (NEGATIVE) 08/07/24 11:14 Urine Nitrite Negative (NEGATIVE) 08/07/24 11:14 Urine Bilirubin Negative (NEGATIVE) 08/07/24 11:14 Urine Urobilinogen Normal (NORMAL) 08/07/24 11:14 Ur Leukocyte Esterase Negative (NEGATIVE) 08/07/24 11:14 Urine RBC 3-5 /HPF (0-3) A 08/07/24 11:14 Urine WBC 0-2 /HPF (0-5) 08/07/24 11:14 Ur Squamous Epith Cells Many /HPF (NEGATIVE) 08/07/24 11:14 Amorphous Sediment 1+ /HPF (NEGATIVE) 08/07/24 11:14 Urine Bacteria Negative /HPF (NEGATIVE) 08/07/24 11:14 Urine Mucus Few /HPF (NEGATIVE) 08/07/24 11:14 Ur Culture Indicated? No/not indicated 08/07/24 11:14 Plan (1) Hyponatremia: Status: Acute (2) Hypokalemia: Status: Acute (3) Cellulitis of right leg: Status: Acute (4) Compression fracture: Status: Acute (5) Closed fibular fracture: Status: Acute Qualifiers: Encounter type: initial encounter Fibula location: proximal Fracture morphology: other fracture Laterality: right Qualified Code(s): S82.831A - Other fracture of upper and lower end of right fibula, initial encounter for closed fracture (6) Dehydration: Status: Acute
[2024-08-10 04:40] LABS: BASOPHILS # (AUTO) 0.1 X10^3/uL (0.0-0.1); BASOPHILS % (AUTO) 0.8 % (0.2-1.0); EOSINOPHILS # (AUTO) 0.1 x10^3/uL (0.0-0.2); EOSINOPHILS % (AUTO) 0.7 % (0.9-2.9); HEMATOCRIT 33.3 % (36.0-47.0); HEMOGLOBIN 11.6 g/dL (12.0-16.0); LYMPHOCYTES # (AUTO) 2.1 X10^3/uL (1.3-2.9); LYMPHOCYTES % (AUTO) 19.9 % (21.0-51.0); MEAN CORPUSCULAR HGB CONC 34.9 g/dL (33.0-35.0); MEAN PLATELET VOLUME 8.3 fL (7.4-11.0); MONOCYTES % (AUTO) 9.5 % (0.0-13.0); NEUTROPHILS # (AUTO) 7.2 x10^3/uL (2.2-4.8); NEUTROPHILS % (AUTO) 69.1 % (42.0-75.0); PLATELET COUNT 263 X10^3/uL (150.0-450.0); RED BLOOD COUNT 4.02 X10^6/uL (3.5-5.4); RED CELL DISTRIBUTION WIDTH 15.7 % (11.6-16.5); WHITE BLOOD COUNT 10.5 X10^3/uL (3.6-10.0)
[2024-08-10 04:57] LABS: ALANINE AMINOTRANSFERASE 14 Units/L (12-78); ALBUMIN 2.4 g/dL (3.4-5.0); ALKALINE PHOSPHATASE 73 Units/L (46-116); ASPARTATE AMINO TRANSFERASE 10 Units/L (15-37); BLOOD UREA NITROGEN 2 mg/dL (7-18); CARBON DIOXIDE 28.9 mmol/L (21-32); CHLORIDE 105 mmol/L (98-107); COR CA(FOR HYPOALB) 9.3 mg/dL (8.5-10.1); CREATININE 0.79 mg/dL (0.55-1.02); GLUCOSE 104 mg/dL (65-99); MAGNESIUM 1.7 mg/dL (2.0-2.9); SODIUM 140 mmol/L (136-145); TOTAL PROTEIN 5.5 g/dL (6.4-8.2); eGFR NON BLACK RACES > 60 (>60)
[2024-08-10 04:59] LABS: POTASSIUM 2.9 mmol/L (3.5-5.1)
[2024-08-10] MEDS ORDERED: CONSULT PHARMACY - POTASSIUM & MAGNESIUM XX SCH (06:00)
[2024-08-10] MEDS: MAG-OX TAB PO SCH (09:40)
[2024-08-10] MEDS: K-DUR TAB 20 MEQ PO SCH (09:40)
[2024-08-10] MEDS: NS + KCL 40 MEQ/L 1,000 ML IV SCH (10:38)
[2024-08-10] MEDS: VIBRAMYCIN PO SCH (10:38)
[2024-08-10] MEDS ORDERED: MILK OF MAGNESIA PO PRN (17:20)
[2024-08-10] MEDS: COLACE CAP 100 MG PO SCH (20:17)
[2024-08-11 06:26] LABS: HEMOGLOBIN 10.8 g/dL (12.0-16.0); RED BLOOD COUNT 3.76 X10^6/uL (3.5-5.4); RED CELL DISTRIBUTION WIDTH 15.8 % (11.6-16.5); WHITE BLOOD COUNT 9.6 X10^3/uL (3.6-10.0)
[2024-08-11 06:30] LABS: BASOPHILS # (AUTO) 0.1 X10^3/uL (0.0-0.1); BASOPHILS % (AUTO) 0.6 % (0.2-1.0); EOSINOPHILS # (AUTO) 0.1 x10^3/uL (0.0-0.2); EOSINOPHILS % (AUTO) 1.2 % (0.9-2.9); HEMATOCRIT 31.5 % (36.0-47.0); LYMPHOCYTES # (AUTO) 1.9 X10^3/uL (1.3-2.9); LYMPHOCYTES % (AUTO) 19.8 % (21.0-51.0); MEAN CORPUSCULAR HEMOGLOBIN 28.7 pg (27.0-34.0); MEAN CORPUSCULAR HGB CONC 34.3 g/dL (33.0-35.0); MEAN CORPUSCULAR VOLUME 83.6 fL (80.0-100.0); MONOCYTES % (AUTO) 9.9 % (0.0-13.0); NEUTROPHILS # (AUTO) 6.6 x10^3/uL (2.2-4.8); NEUTROPHILS % (AUTO) 68.5 % (42.0-75.0); PLATELET COUNT 262 X10^3/uL (150.0-450.0)
[2024-08-11 06:32] LABS: ALANINE AMINOTRANSFERASE 12 Units/L (12-78); ALBUMIN 2.1 g/dL (3.4-5.0); ALKALINE PHOSPHATASE 75 Units/L (46-116); ASPARTATE AMINO TRANSFERASE 14 Units/L (15-37); BLOOD UREA NITROGEN 4 mg/dL (7-18); CALCIUM 8.1 mg/dL (8.5-10.1); CARBON DIOXIDE 28.9 mmol/L (21-32); CHLORIDE 103 mmol/L (98-107); COR CA(FOR HYPOALB) 9.6 mg/dL (8.5-10.1); COR NA(FOR HYPERGLY) 138 mmol/L (136-145); CREATININE 0.89 mg/dL (0.55-1.02); GLUCOSE 113 mg/dL (65-99); POTASSIUM 3.8 mmol/L (3.5-5.1); SODIUM 138 mmol/L (136-145); TOTAL PROTEIN 5.2 g/dL (6.4-8.2); eGFR NON BLACK RACES > 60 (>60)
[2024-08-11] MEDS ORDERED: CONSULT PHARMACY - POTASSIUM & MAGNESIUM XX SCH (08:00)
[2024-08-11] MEDS: NS + KCL 40 MEQ/L 1,000 ML with MAGNESIUM SULFATE 50% INJ VIAL 2 G IV SCH (08:07)
--- NOTE | 2024-08-11 12:43 | NOTE.SOAP ---
Soap Note Note for Day of Date of Exam: 08/11/24 Subjective Data Subjective Data: Patiently for morning rounds with nurse. Continues to report back pain. Reports her right leg is feeling much better. She has been ambulating to the bathroom with a walker. White count normal now. Sodium normal as well. Objective Data Objective Data: WD, WN female in NAD. Head NCAT. Hearing intact conversation. Heart regular rate and rhythm. Lungs are clear with good respirations and clear speech. Bowel sounds are present. Clean dry dressing to RLE. Good range of motion and strength in bilateral ankles and feet. Mood affect appropriate. Assessment Assessment: 1. Sepsis secondary to RLE cellulitis with MRSA. Continue doxycycl ine. She was leukocytotic and tachycardic but both of those have resolved. Continue wound care. 2. Electrolyte derangements-hyponatremia/hypokalemia/hypomagnesemia. Hyponatremia and hypokalemia have resolved. Continue current. Replace magnesium as needed. 3. Lumbar compression fracture. Plan to get an MRI today but patient refused. She has no insurance at this time and therefore would not qualify for an outpatient kyphoplasty due to cost probations. There is no emergent need for transfer at this time as she has been able to ambulate. Will plan on continued pain control with discharge home this weekend. 4. Closed, proximal fibular fracture- continue current. No walking boot or splint due to RLE cellulitis.
[2024-08-12 06:02] LABS: BASOPHILS % (AUTO) 0.4 % (0.2-1.0); EOSINOPHILS # (AUTO) 0.2 x10^3/uL (0.0-0.2); EOSINOPHILS % (AUTO) 1.8 % (0.9-2.9); HEMATOCRIT 33.3 % (36.0-47.0); HEMOGLOBIN 11.4 g/dL (12.0-16.0); LYMPHOCYTES % (AUTO) 20.8 % (21.0-51.0); MEAN CORPUSCULAR HEMOGLOBIN 28.7 pg (27.0-34.0); MEAN CORPUSCULAR HGB CONC 34.3 g/dL (33.0-35.0); MEAN CORPUSCULAR VOLUME 83.7 fL (80.0-100.0); MEAN PLATELET VOLUME 7.9 fL (7.4-11.0); MONOCYTES # (AUTO) 0.9 x10^3/uL (0.3-0.8); MONOCYTES % (AUTO) 9.1 % (0.0-13.0); NEUTROPHILS # (AUTO) 6.7 x10^3/uL (2.2-4.8); NEUTROPHILS % (AUTO) 67.9 % (42.0-75.0); PLATELET COUNT 293 X10^3/uL (150.0-450.0); RED BLOOD COUNT 3.97 X10^6/uL (3.5-5.4); RED CELL DISTRIBUTION WIDTH 16.2 % (11.6-16.5); WHITE BLOOD COUNT 9.8 X10^3/uL (3.6-10.0)
[2024-08-12 06:27] LABS: ALANINE AMINOTRANSFERASE 17 Units/L (12-78); ALKALINE PHOSPHATASE 86 Units/L (46-116); ASPARTATE AMINO TRANSFERASE 13 Units/L (15-37); BLOOD UREA NITROGEN 3 mg/dL (7-18); CALCIUM 8.4 mg/dL (8.5-10.1); CARBON DIOXIDE 29.9 mmol/L (21-32); CHLORIDE 102 mmol/L (98-107); CREATININE 0.78 mg/dL (0.55-1.02); GLUCOSE 91 mg/dL (65-99); MAGNESIUM 2.4 mg/dL (2.0-2.9); POTASSIUM 4.8 mmol/L (3.5-5.1); SODIUM 138 mmol/L (136-145); TOTAL PROTEIN 5.6 g/dL (6.4-8.2); eGFR NON BLACK RACES > 60 (>60)
[2024-08-12] MEDS: NS 1,000 ML IV 1,000 ML IV SCH (09:23)
--- NOTE | 2024-08-12 18:38 | NOTE.SOAP ---
Soap Note Note for Day of Date of Exam: 08/12/24 Subjective Data Subjective Data: Patient is seen for morning rounds with nurse. She was able to ambulate to the bathroom without assistance. She is able to move slowly and steadily. Does continue to report back pain. Right leg is doing much better. Labs and vitals have remained stable over 24 hours. Does have concerns about discharging home this weekend due to issues getting her medications and finances. She can go to her mother's house Objective Data Objective Data: WN, WD female in NAD. Head NCAT. Hearing intact conversation. EOMI while wearing glasses. Heart regular rate rhythm. Lungs are clear. Bowel sounds present. Gait is slow and steady. Mood and affect appropriate. RLE with clean, dry dressing present Assessment Assessment: 1. Sepsis secondary to RLE cellulitis with MRSA. Continue doxycycline. Resolving. 2. Electrolyte derangements-hyponatremia/hypokalemia/hypomagnesemia. Resolved. Monitor for changes. 3. Lumbar compression fracture. Pain control, walker, and outpt ortho spine referral. 4. Closed, proximal fibular fracture- continue current. No walking boot or splint due to RLE cellulitis.
[2024-08-13 06:19] LABS: BASOPHILS # (AUTO) 0.1 X10^3/uL (0.0-0.1); BASOPHILS % (AUTO) 0.5 % (0.2-1.0); EOSINOPHILS # (AUTO) 0.1 x10^3/uL (0.0-0.2); EOSINOPHILS % (AUTO) 1.1 % (0.9-2.9); HEMATOCRIT 30.1 % (36.0-47.0); HEMOGLOBIN 10.4 g/dL (12.0-16.0); LYMPHOCYTES # (AUTO) 1.6 X10^3/uL (1.3-2.9); LYMPHOCYTES % (AUTO) 14.7 % (21.0-51.0); MEAN CORPUSCULAR HEMOGLOBIN 28.8 pg (27.0-34.0); MEAN CORPUSCULAR HGB CONC 34.7 g/dL (33.0-35.0); MEAN CORPUSCULAR VOLUME 82.9 fL (80.0-100.0); MEAN PLATELET VOLUME 7.7 fL (7.4-11.0); MONOCYTES # (AUTO) 0.9 x10^3/uL (0.3-0.8); MONOCYTES % (AUTO) 8.9 % (0.0-13.0); NEUTROPHILS # (AUTO) 7.9 x10^3/uL (2.2-4.8); NEUTROPHILS % (AUTO) 74.8 % (42.0-75.0); PLATELET COUNT 302 X10^3/uL (150.0-450.0); RED BLOOD COUNT 3.63 X10^6/uL (3.5-5.4); RED CELL DISTRIBUTION WIDTH 15.9 % (11.6-16.5); WHITE BLOOD COUNT 10.6 X10^3/uL (3.6-10.0)
[2024-08-13 06:30] LABS: ALANINE AMINOTRANSFERASE 21 Units/L (12-78); ALBUMIN 2.1 g/dL (3.4-5.0); ALKALINE PHOSPHATASE 100 Units/L (46-116); ASPARTATE AMINO TRANSFERASE 19 Units/L (15-37); BLOOD UREA NITROGEN 4 mg/dL (7-18); CALCIUM 8.6 mg/dL (8.5-10.1); CHLORIDE 102 mmol/L (98-107); COR CA(FOR HYPOALB) 10.1 mg/dL (8.5-10.1); COR NA(FOR HYPERGLY) 138 mmol/L (136-145); CREATININE 0.84 mg/dL (0.55-1.02); GLUCOSE 112 mg/dL (65-99); POTASSIUM 4.3 mmol/L (3.5-5.1); SODIUM 138 mmol/L (136-145); TOTAL PROTEIN 5.6 g/dL (6.4-8.2); eGFR NON BLACK RACES > 60 (>60)
[2024-08-13 12:15] VITALS: BP 135/65; PULSE 88; RESP 19; TEMP 97.5; O2SAT 100
--- NOTE | 2024-08-14 08:36 | PCM.DCPLAN ---
DISCHARGE SUMMARY Admission Date Date of Admission: 08/07/24 Discharge Date Discharge Date: 08/13/24 Admission Diagnoses (1) Hyponatremia: Status: Acute (2) Hypokalemia: Status: Acute (3) Cellulitis of right leg: Status: Acute (4) Compression fracture: Status: Acute (5) Closed fibular fracture: Status: Acute (6) Dehydration: Status: Acute Discharge Medications Discharge Medications: Home Medication List lisinopril 10 mg tablet 10 mg PO DAILY 08/07/24 [History] cyclobenzaprine 10 mg tablet 5 mg PO TID PRN 10 days #30 tabs 08/10/24 [Rx] doxycycline hyclate 100 mg capsule 100 mg PO BID 10 days #20 caps 08/10/24 [Rx] hydrocodone 5 mg-acetaminophen 325 mg tablet 1 tab PO Q8H PRN pain 5 days #15 tabs 08/10/24 [Rx] Prescriptions: cyclobenzaprine Denisse David doxycycline hyclate Danae Davidha hydrocodone-acetaminophen Denisse David Hospital Course Vital Signs: Vital Signs Temperature 97.7 F Temperature 98.3 F Pulse Rate [Left Brachial] 119 Pulse Rate [Left Brachial] 117 Respiratory Rate 18 Respiratory Rate 17 Blood Pressure [Left Arm] 143/72 Blood Pressure [Left Arm] 140/65 O2 Sat by Pulse Oximetry 94 O2 Sat by Pulse Oximetry 97 Latest Lab Results: Laboratory Last Values WBC 10.6 X10^3/uL (3.6-10.0) H 08/13/24 05:34 RBC 3.63 X10^6/uL (3.5-5.4) 08/13/24 05:34 Hgb 10.4 g/dL (12.0-16.0) L 08/13/24 05:34 Hct 30.1 % (36.0-47.0) L 08/13/24 05:34 MCV 82.9 fL (80.0-100.0) 08/13/24 05:34 MCH 28.8 pg (27.0-34.0) 08/13/24 05:34 MCHC 34.7 g/dL (33.0-35.0) 08/13/24 05:34 RDW 15.9 % (11.6-16.5) 08/13/24 05:34 Plt Count 302 X10^3/uL (150.0-450.0) 08/13/24 05:34 Plt Count Comment Adequate (ADEQUATE) 08/07/24 11:26 MPV 7.7 fL (7.4-11.0) 08/13/24 05:34 Neut % (Auto) 74.8 % (42.0-75.0) 08/13/24 05:34 Lymph % (Auto) 14.7 % (21.0-51.0) L 08/13/24 05:34 [place] % (Auto) 8.9 % (0.0-13.0) 08/13/24 05:34 Eos % (Auto) 1.1 % (0.9-2.9) 08/13/24 05:34 Baso % (Auto) 0.5 % (0.2-1.0) 08/13/24 05:34 Neut # (Auto) 7.9 x10^3/uL (2.2-4.8) H 08/13/24 05:34 Lymph # (Auto) 1.6 X10^3/uL (1.3-2.9) 08/13/24 05:34 [place] # (Auto) 0.9 x10^3/uL (0.3-0.8) H 08/13/24 05:34 Eos # (Auto) 0.1 x10^3/uL (0.0-0.2) 08/13/24 05:34 Baso # (Auto) 0.1 X10^3/uL (0.0-0.1) 08/13/24 05:34 Absolute Nucleated RBC 0.0 /100WBC 08/13/24 05:34 Total Counted 100 08/07/24 11:26 Neutrophils % (Manual) 82 % (39-76) H 08/07/24 11:26 Band Neutrophils % 5 % (0-10) 08/07/24 11:26 Lymphocytes % (Manual) 9 % (13-43) L 08/07/24 11:26 Monocytes % (Manual) 4 % (4-9) 08/07/24 11:26 Plt Morphology Comment Normal (NORMAL) 08/07/24 11:26 RBC Morphology Normal (NORMAL) 08/07/24 11:26 Sodium 138 mmol/L (136-145) 08/13/24 05:34 Corrected Sodium 138 mmol/L (136-145) 08/13/24 05:34 Potassium 4.3 mmol/L (3.5-5.1) 08/13/24 05:34 Chloride 102 mmol/L (98-107) 08/13/24 05:34 Carbon Dioxide 30.0 mmol/L (21-32) 08/13/24 05:34 BUN 4 mg/dL (7-18) L 08/13/24 05:34 Creatinine 0.84 mg/dL (0.55-1.02) 08/13/24 05:34 Est GFR (MDRD) Af Amer > 60 (>60) 08/13/24 05:34 Est GFR (MDRD) Non-Af > 60 (>60) 08/13/24 05:34 Glucose 112 mg/dL (65-99) H 08/13/24 05:34 Lactic Acid 1.2 mmol/L (0.4-2.0) 08/07/24 12:07 Calcium 8.6 mg/dL (8.5-10.1) 08/13/24 05:34 Corrected Calcium 10.1 mg/dL (8.5-10.1) 08/13/24 05:34 Magnesium 2.4 mg/dL (2.0-2.9) 08/12/24 05:20 Total Bilirubin 0.20 mg/dL (0.2-1.0) 08/13/24 05:34 AST 19 Units/L (15-37) 08/13/24 05:34 ALT 21 Units/L (12-78) 08/13/24 05:34 Alkaline Phosphatase 100 Units/L (46-116) 08/13/24 05:34 Total Protein 5.6 g/dL (6.4-8.2) L 08/13/24 05:34 Albumin 2.1 g/dL (3.4-5.0) L 08/13/24 05:34 Globulin 3.5 g/dL (2.5-4.5) 08/13/24 05:34 Albumin/Globulin Ratio 0.6 Ratio (1.1-2.1) L 08/13/24 05:34 Specimen Type Clean catch urine 08/07/24 11:14 Urine Color Yellow (YELLOW) 08/07/24 11:14 Urine Appearance Slightly hazy (CLEAR) 08/07/24 11:14 Urine pH 6.0 (5.0 - 8.0) 08/07/24 11:14 Ur Specific [place] 1.010 (1.000-1.030) 08/07/24 11:14 Urine Protein 2+ (NEGATIVE) 08/07/24 11:14 Urine Glucose (UA) Negative (NEGATIVE) 08/07/24 11:14 Urine Ketones 3+ (NEGATIVE) 08/07/24 11:14 Urine Blood 3+ (NEGATIVE) 08/07/24 11:14 Urine Nitrite Negative (NEGATIVE) 08/07/24 11:14 Urine Bilirubin Negative (NEGATIVE) 08/07/24 11:14 Urine Urobilinogen Normal (NORMAL) 08/07/24 11:14 Ur Leukocyte Esterase Negative (NEGATIVE) 08/07/24 11:14 Urine RBC 3-5 /HPF (0-3) A 08/07/24 11:14 Urine WBC 0-2 /HPF (0-5) 08/07/24 11:14 Ur Squamous Epith Cells Many /HPF (NEGATIVE) 08/07/24 11:14 Amorphous Sediment 1+ /HPF (NEGATIVE) 08/07/24 11:14 Urine Bacteria Negative /HPF (NEGATIVE) 08/07/24 11:14 Urine Mucus Few /HPF (NEGATIVE) 08/07/24 11:14 Ur Culture Indicated? No/not indicated 08/07/24 11:14 Hospital Course: Admitted with sespsis due to MRSA cellulitis of RLE, proximal fx of RT fibula, and L1 compression fx. Cellulitis resolving on PO doxycycline. She has lost her insurance and is concerned about f/u. Patient has continued to ambulate slowly to the restroom and around the room without difficulty. She does report that she has supplies at home. She was discharged home on p.o. doxycycline, pain management, and muscle relaxants with instructions to get with her PCP after discharge. Also advised on exchange insurance programs and applying for Medicaid. Will need follow-up with orthopedic spine versus neurosurgeon.
--- NOTE | 2024-08-14 09:30 | PCM.PROG ---
Progress Note Progress Note for Day of Date of Exam: 08/10/24 Subjective Subjective: Patient seen at bedside, no acute events overnight. She is feeling better today. She states back pain is better controlled. She has been ambulating to the bathroom. She is currently admitted for hyponatremia, dehydration, RLE cellulitis and lumbar compression fracture. Wound Cx grew out MRSA. Potassium level is 2.9. Labs/imaging reviewed: -WBC 10.5 K 2.9 Mag 1.7 -Wound Cx MRSA Plan: Will switch to doxycycline. Replace K and Mag, continue hydration. Repeat K level this afternoon. Continue pain control. Continue home medications. PT evaluation, ambulate as tolerated. Keep RLE elevated. Monitor AM labs/imaging. Past Medical Family Social History Allergies: Allergies azithromycin [From Zithromax] Allergy (Verified 08/07/24 10:05) Vital Signs and I&O's Intake and Output: Intake & Output 08/11/24 08/12/24 08/13/24 08/14/24 23:59 23:59 23:59 23:59 Intake Total 2556 / 2556 2949 / 2949 642 / 642 Output Total 2 / 2 Balance 2556 / 2556 2949 / 2949 640 / 640 Physical Exam Oriented: Normal Throat: Normal Respiratory: Normal Cardiovascular: Normal Auscultation: Bowel Sounds: Normal Palpation: Normal Tenderness: Normal Skin: Rash, Tender and Other (RLE: erythematous, blistering, no drainage, warm + tender - improved ) Musculoskeletal: Leg, Back:Lumbar and Back:Paraspinous Psychiatric: Normal Mood Description: Calm Affect: Normal Speech Pattern: Clear and Appropriate Laboratory and Diagnostics 08/13/24 05:34 08/13/24 05:34 Labs: 08/07/24 17:30 Blood Blood Culture - Final 08/07/24 17:15 Blood Blood Culture - Final 08/08/24 11:15 Leg - Right Wound Gram Stain - Final 08/08/24 11:15 Leg - Right Wound Culture - Final Methicillin Resis Staph Aureus Laboratory WBC 10.6 X10^3/uL (3.6-10.0) H 08/13/24 05:34 RBC 3.63 X10^6/uL (3.5-5.4) 08/13/24 05:34 Hgb 10.4 g/dL (12.0-16.0) L 08/13/24 05:34 Hct 30.1 % (36.0-47.0) L 08/13/24 05:34 MCV 82.9 fL (80.0-100.0) 08/13/24 05:34 MCH 28.8 pg (27.0-34.0) 08/13/24 05:34 MCHC 34.7 g/dL (33.0-35.0) 08/13/24 05:34 RDW 15.9 % (11.6-16.5) 08/13/24 05:34 Plt Count 302 X10^3/uL (150.0-450.0) 08/13/24 05:34 Plt Count Comment Adequate (ADEQUATE) 08/07/24 11:26 MPV 7.7 fL (7.4-11.0) 08/13/24 05:34 Neut % (Auto) 74.8 % (42.0-75.0) 08/13/24 05:34 Lymph % (Auto) 14.7 % (21.0-51.0) L 08/13/24 05:34 [place] % (Auto) 8.9 % (0.0-13.0) 08/13/24 05:34 Eos % (Auto) 1.1 % (0.9-2.9) 08/13/24 05:34 Baso % (Auto) 0.5 % (0.2-1.0) 08/13/24 05:34 Neut # (Auto) 7.9 x10^3/uL (2.2-4.8) H 08/13/24 05:34 Lymph # (Auto) 1.6 X10^3/uL (1.3-2.9) 08/13/24 05:34 [place] # (Auto) 0.9 x10^3/uL (0.3-0.8) H 08/13/24 05:34 Eos # (Auto) 0.1 x10^3/uL (0.0-0.2) 08/13/24 05:34 Baso # (Auto) 0.1 X10^3/uL (0.0-0.1) 08/13/24 05:34 Absolute Nucleated RBC 0.0 /100WBC 08/13/24 05:34 Total Counted 100 08/07/24 11:26 Neutrophils % (Manual) 82 % (39-76) H 08/07/24 11:26 Band Neutrophils % 5 % (0-10) 08/07/24 11:26 Lymphocytes % (Manual) 9 % (13-43) L 08/07/24 11:26 Monocytes % (Manual) 4 % (4-9) 08/07/24 11:26 Plt Morphology Comment Normal (NORMAL) 08/07/24 11:26 RBC Morphology Normal (NORMAL) 08/07/24 11:26 Sodium 138 mmol/L (136-145) 08/13/24 05:34 Corrected Sodium 138 mmol/L (136-145) 08/13/24 05:34 Potassium 4.3 mmol/L (3.5-5.1) 08/13/24 05:34 Chloride 102 mmol/L (98-107) 08/13/24 05:34 Carbon Dioxide 30.0 mmol/L (21-32) 08/13/24 05:34 BUN 4 mg/dL (7-18) L 08/13/24 05:34 Creatinine 0.84 mg/dL (0.55-1.02) 08/13/24 05:34 Est GFR (MDRD) Af Amer > 60 (>60) 08/13/24 05:34 Est GFR (MDRD) Non-Af > 60 (>60) 08/13/24 05:34 Glucose 112 mg/dL (65-99) H 08/13/24 05:34 Lactic Acid 1.2 mmol/L (0.4-2.0) 08/07/24 12:07 Calcium 8.6 mg/dL (8.5-10.1) 08/13/24 05:34 Corrected Calcium 10.1 mg/dL (8.5-10.1) 08/13/24 05:34 Magnesium 2.4 mg/dL (2.0-2.9) 08/12/24 05:20 Total Bilirubin 0.20 mg/dL (0.2-1.0) 08/13/24 05:34 AST 19 Units/L (15-37) 08/13/24 05:34 ALT 21 Units/L (12-78) 08/13/24 05:34 Alkaline Phosphatase 100 Units/L (46-116) 08/13/24 05:34 Total Protein 5.6 g/dL (6.4-8.2) L 08/13/24 05:34 Albumin 2.1 g/dL (3.4-5.0) L 08/13/24 05:34 Globulin 3.5 g/dL (2.5-4.5) 08/13/24 05:34 Albumin/Globulin Ratio 0.6 Ratio (1.1-2.1) L 08/13/24 05:34 Specimen Type Clean catch urine 08/07/24 11:14 Urine Color Yellow (YELLOW) 08/07/24 11:14 Urine Appearance Slightly hazy (CLEAR) 08/07/24 11:14 Urine pH 6.0 (5.0 - 8.0) 08/07/24 11:14 Ur Specific [place] 1.010 (1.000-1.030) 08/07/24 11:14 Urine Protein 2+ (NEGATIVE) 08/07/24 11:14 Urine Glucose (UA) Negative (NEGATIVE) 08/07/24 11:14 Urine Ketones 3+ (NEGATIVE) 08/07/24 11:14 Urine Blood 3+ (NEGATIVE) 08/07/24 11:14 Urine Nitrite Negative (NEGATIVE) 08/07/24 11:14 Urine Bilirubin Negative (NEGATIVE) 08/07/24 11:14 Urine Urobilinogen Normal (NORMAL) 08/07/24 11:14 Ur Leukocyte Esterase Negative (NEGATIVE) 08/07/24 11:14 Urine RBC 3-5 /HPF (0-3) A 08/07/24 11:14 Urine WBC 0-2 /HPF (0-5) 08/07/24 11:14 Ur Squamous Epith Cells Many /HPF (NEGATIVE) 08/07/24 11:14 Amorphous Sediment 1+ /HPF (NEGATIVE) 08/07/24 11:14 Urine Bacteria Negative /HPF (NEGATIVE) 08/07/24 11:14 Urine Mucus Few /HPF (NEGATIVE) 08/07/24 11:14 Ur Culture Indicated? No/not indicated 08/07/24 11:14 Plan (1) Hyponatremia: Status: Acute (2) Hypokalemia: Status: Acute (3) Cellulitis of right leg: Status: Acute (4) Compression fracture: Status: Acute (5) Closed fibular fracture: Status: Acute Qualifiers: Encounter type: initial encounter Fibula location: proximal Fracture morphology: other fracture Laterality: right Qualified Code(s): S82.831A - Other fracture of upper and lower end of right fibula, initial encounter for closed fracture (6) Dehydration: Status: Acute
== END 2024-08-13 13:15 | disposition home or self-care (01) | DRG 603 ==
LOC: MED/SURG 10:00 → ER 10:00 → OBSVTOIN 15:20 → MED/SURG 15:36
PROVIDERS: ADMIT Family Medicine; ATTEND Family Medicine
DX: W18.39XA Other fall on same level, initial encounter; B95.62 Methicillin resistant Staphylococcus aureus infection as the cause of diseases classified elsewhere; E87.6 Hypokalemia; M54.59 Other low back pain; Z60.8 Other problems related to social environment; R26.89 Other abnormalities of gait and mobility; E87.1 Hypo-osmolality and hyponatremia; Z16.12 Extended spectrum beta lactamase (ESBL) resistance; M48.56XA Collapsed vertebra, not elsewhere classified, lumbar region, initial encounter for fracture; M51.369 Other intervertebral disc degeneration, lumbar region without mention of lumbar back pain or lower extremity pain; Z59.89 Other problems related to housing and economic circumstances; S82.831A Other fracture of upper and lower end of right fibula, initial encounter for closed fracture; Z16.29 Resistance to other single specified antibiotic; F41.8 Other specified anxiety disorders; I10 Essential (primary) hypertension; Z65.8 Other specified problems related to psychosocial circumstances; L03.115 Cellulitis of right lower limb